=== PATIENT | female | born 1945 | race Caucasian/White ===

== ENCOUNTER 2020-09-21 18:33 | Emergency (ER) | payer OTHER, MEDICAID ==
[~2020-09-21] VITALS: Ht 165.1 cm; Wt 68.0 kg
[2020-09-21 18:40] VITALS: BP_SYST 139
--- NOTE | 2020-09-21 18:46 | NUR ---
placed in bed 3
--- NOTE | 2020-09-21 18:54 | NUR ---
ER Dr. Ragsdale at bedside examining patient.
--- NOTE | 2020-09-21 18:56 | NUR ---
Patient AAO x 4 BIB family member was wheeled to ER bed 3 for c/o pain to 10/10 L wrist/hand and R lower leg hematoma and skin tear s/p ground level slip and fall. Patient denies dizziness and KO. She also reports history of multiple sclerosis. Even chest rise and fall with respirations. Will continue to monitor.
--- NOTE | 2020-09-21 19:12 | NUR ---
received report from MATT Ames for continuation of care.
--- NOTE | 2020-09-21 19:18 | NUR ---
ER Dr. Edwards at bedside examining patient.
[2020-09-21] MEDS ORDERED: KETOROLAC TROMETHAMINE 60 MG/2 ML VIAL IM ONE (19:30)
--- NOTE | 2020-09-21 19:40 | NUR ---
skin tear on right lower leg cleaned with iodine and normal saline.
--- NOTE | 2020-09-21 19:53 | NUR ---
radiology at bedside for xray.
--- NOTE | 2020-09-21 20:00 | NUR ---
Patient transported to radiology via wheelchair, accompanied by staff.
--- NOTE | 2020-09-21 20:15 | NUR ---
patient returned from radiology.
--- NOTE | 2020-09-21 20:15 | NUR ---
informed CT could not be done due to technological difficulties.
--- NOTE | 2020-09-21 20:39 | NUR ---
patient ambulated to restroom with assistance with steady gait.
--- NOTE | 2020-09-21 20:45 | NUR ---
Patient transported to radiology via wheelchair, accompanied by staff.
--- NOTE | 2020-09-21 21:03 | NUR ---
PATIENT RETURNED FROM RADIOLOGY.
--- NOTE | 2020-09-21 21:33 | NUR ---
FORTINO WRAP PLACED ON LEFT WRIST PER MD ORDER. PT CAP REFILL <3 SECONDS. PT DENIES NUMBNESS OR TINGLING IN FINGERS.
[2020-09-21] MEDS ORDERED: MUPIROCIN 2% TOPICAL OINTMENT 22 GM TP ONE (22:15)
[2020-09-21 22:16] VITALS: BP_SYST 149
--- NOTE | 2020-09-21 22:16 | NUR ---
Patient given written and verbal discharge instructions and verbalizes understanding. ER MD discussed with patient the results and treatment provided. Patient in stable condition. ID arm band removed. Rx of NAPROSYN given. Patient educated on pain management and to follow up with PMD. Pain Scale 2/10. Opportunity for questions provided and answered. Medication side effect fact sheet provided.
[2020-09-21] MEDS ORDERED: BACITRACIN 1 GM OINT TP ONE (22:30)
== END 2020-09-21 22:16 | disposition home or self-care (01) ==
LOC: SED 18:33
DX: S00.83XA Contusion of other part of head, initial encounter (principal); S80.11XA Contusion of right lower leg, initial encounter; M25.532 Pain in left wrist; W01.0XXA Fall on same level from slipping, tripping and stumbling without subsequent striking against object, initial encounter; Y93.89 Activity, other specified; Y92.89 Other specified places as the place of occurrence of the external cause; Y99.8 Other external cause status
CPT/HCPCS: 70160; 70486; 73100; 96372; 99284; J1885

== ENCOUNTER 2020-09-22 11:44 | Emergency (ER) | payer OTHER, MEDICAID ==
[~2020-09-22] VITALS: Ht 165.1 cm; Wt 77.1 kg
[2020-09-22 12:21] VITALS: BP_SYST 112
--- NOTE | 2020-09-22 12:27 | NUR ---
PT IS IN BED WITH SIDE RAILS UP, CONNECTED TO THE MONITOR
--- NOTE | 2020-09-22 12:30 | NUR ---
PT IS C/O OF A MECHANICAL FALL, WAS SEEN HERE YESTERDAY SINCE SHE FRACTURE HER LEFT WRIST. PT WISHES A SPLINT
[2020-09-22 12:50] VITALS: BP_SYST 108
[2020-09-22] MEDS ORDERED: KETOROLAC TROMETHAMINE 60 MG/2 ML VIAL IM ONE ×2 (13:15→13:35)
--- NOTE | 2020-09-22 13:15 | NUR ---
PT VERBAILZED UNDERSTANDING OF D/C PAPERWORK, AND PRESCRIPTION. CD OF XRAY WAS GIVEN, AND ARM WAS SPLINT. PT DENIES ANY PAIN AT THIS TIME. RESPIRATION IS EVEN AND UNLABORED, VV
--- NOTE | 2020-09-22 13:22 | NUR ---
Patient given written and verbal discharge instructions and verbalizes understanding. ER MD discussed with patient the results and treatment provided. Patient in stable condition. ID arm band removed. Rx of NORCO given. Patient educated on pain management and to follow up with PMD. Pain Scale 2/10 Opportunity for questions provided and answered. Medication side effect fact sheet provided.
== END 2020-09-22 13:22 | disposition home or self-care (01) ==
LOC: SED 11:44
DX: S52.592A Other fractures of lower end of left radius, initial encounter for closed fracture (principal); Z88.2 Allergy status to sulfonamides; X50.1XXA Overexertion from prolonged static or awkward postures, initial encounter; Y93.89 Activity, other specified; Y92.89 Other specified places as the place of occurrence of the external cause; Y99.8 Other external cause status
CPT/HCPCS: 29125; 96372; 99283; J1885

== ENCOUNTER 2022-11-20 10:26 | Emergency (ER) | payer OTHER, MEDICAID ==
[~2022-11-20] VITALS: Ht 165.1 cm; Wt 63.5 kg
[2022-11-20 10:42] VITALS: BP_SYST 131
--- NOTE | 2022-11-20 10:46 | NUR ---
Patient to ER bed H3 to gown for evaluation. Side rails up. Report given to PETER HANEY.
--- NOTE | 2022-11-20 11:00 | NUR ---
76-year-old female with history of multiple sclerosis, emphysema, hypothyroidism, presents after syncopal episode injury to her right knee and right ankle. Patient states this happened yesterday around 2 AM. Patient states that she has chronic diarrhea, she was having a bowel movement when she felt dizzy and fell forward, she denies any head injury, states that she hit her knee against an object and now has a laceration to her knee. Patient states that she is able to ambulate, however with pain. Denies any other injuries at this time.
[2022-11-20] MEDS ORDERED: ACETAMINOPHEN 325 MG TABLET PO ONE (11:15)
[2022-11-20 11:24] LABS: BASOPHILS # (AUTO) 0.1 K/uL (0.0-0.2); BASOPHILS % (AUTO) 0.7 % (0.0-2.0); EOSINOPHILS # (AUTO) 0.2 K/uL (0.0-0.4); EOSINOPHILS % (AUTO) 2.8 % (0.0-4.0); HEMATOCRIT 39.3 % (36-48); HEMOGLOBIN 13.1 g/dL (12.0-16.0); LYMPHOCYTES # (AUTO) 0.4 K/uL (1.0-5.5); LYMPHOCYTES % (AUTO) 5.1 % (20.5-51.5); MEAN CORPUSCULAR HEMOGLOBIN 28 pg (27-31); MEAN CORPUSCULAR HGB CONC 33 % (32-36); MEAN CORPUSCULAR VOLUME 84 fL (79.0-98.0); MONOCYTES # (AUTO) 0.7 K/uL (0.0-1.0); MONOCYTES % (AUTO) 8.5 % (1.7-9.3); NEUTROPHILS # (AUTO) 6.7 K/uL (1.8-7.7); NEUTROPHILS % (AUTO) 82.9 % (40.0-70.0); PLATELET COUNT (AUTO) 286 K/uL (130-430); RED BLOOD CELL COUNT(AUTO) 4.68 MIL/uL (4.2-6.2); RED CELL DISTRIBUTION WIDTH 15.7 % (9.0-15.0); WHITE BLOOD COUNT (AUTO) 8.1 K/uL (4.8-10.8)
[2022-11-20] MEDS ORDERED: KETOROLAC TROMETHAMINE 15 MG VIAL IM ONE (11:30)
--- NOTE | 2022-11-20 11:40 | NUR ---
Pt medicated per md order. pt notes liver sensitivity to tylenol. md notified.
--- NOTE | 2022-11-20 11:42 | NUR ---
Patient transported to radiology via gurney, accompanied by refractory technician.
[2022-11-20 11:50] LABS: ANION GAP 6 (5-15); CALCIUM 8.5 mg/dL (8.4-11.0); CHLORIDE 105 mmol/L (98-107); CREATININE 0.89 mg/dL (0.55-1.30); GLUCOSE 102 mg/dL (70-99); UREA NITROGEN, BLOOD 28 mg/dL (8-21)
[2022-11-20 11:57] LABS: ALANINE AMINOTRANSFERASE 25 U/L (12-78); ALBUMIN 3.8 g/dL (3.4-4.8); ASPARTATE AMINOTRANSFERASE 17 U/L (10-37); TOTAL BILIRUBIN 0.4 mg/dL (0.0-1.0)
--- NOTE | 2022-11-20 12:15 | NUR ---
bedside suturing laceration. Pt swab specimen collected and delivered to lab.
[2022-11-20] MEDS ORDERED: BACITRACIN 1 GM OINT TP ONE (14:00)
[2022-11-20] MEDS ORDERED: ACET-2634 PO (14:09)
--- NOTE | 2022-11-20 14:21 | NUR ---
Dressed wound w. Basitrasin, non-adhering gauze, curlex & tubular gauze.
--- NOTE | 2022-11-20 14:22 | NUR ---
Placed a short leg posterior splint with a sugar tong splint. PMS& Cap. refill 2+ & normal
[2022-11-20 15:34] VITALS: BP_SYST 131
[2022-11-20] MEDS ORDERED: IBUP-1970 PO (15:42)
== END 2022-11-20 15:34 | disposition home or self-care (01) ==
LOC: SED 10:26
DX: S81.011A Laceration without foreign body, right knee, initial encounter (principal); R55 Syncope and collapse; R19.7 Diarrhea, unspecified; Z88.2 Allergy status to sulfonamides; Z79.899 Other long term (current) drug therapy; Z20.822 Contact with and (suspected) exposure to COVID-19; X58.XXXA Exposure to other specified factors, initial encounter; Y93.89 Activity, other specified; Y92.89 Other specified places as the place of occurrence of the external cause; Y99.8 Other external cause status
CPT/HCPCS: 99285; 29515; 73700; 71045; 87426; 80053; 85025; 84484; 36415; 93005; 73610; 76376; 96372; 12002; J1885